=== PATIENT | male | born 1940 | race Caucasian/White ===

== ENCOUNTER 2017-11-24 05:26 | Day surgery (SDC) | payer OTHER ==
[~2017-11-24] VITALS: Ht 175.3 cm; Wt 90.9 kg
--- NOTE | ~2017-11-24 | O ---
[facility] [place] [address] OPERATIVE REPORT Name: WHITLEY BANDA Room #: DEP [facility].#: [id number] Admission: 11/24/17 Attend Phys: Louie Ling MD Discharge: 11/24/17 Date of : 44 Report #: [id number] THIS REPORT FOR: //name// CC: Nathan Ling DATE OF SERVICE: 11/24/2017 SURGEON: Louie Ling MD WINTERIZER: None. PREOPERATIVE DIAGNOSIS: Bilateral upper lid dermatochalasia with superior visual field defect. POSTOPERATIVE DIAGNOSIS: Bilateral upper lid dermatochalasia with superior visual field defect. OPERATION PERFORMED: Bilateral upper lid functional blepharoplasty. ANESTHESIA: Local with IV sedation. COMPLICATIONS: None. INDICATIONS FOR SURGERY: This patient has acquired upper lid dermatochalasia with superior visual field loss both eyes because of excessive upper lid tissues to include skin and fat. Visual field testing demonstrates dense superior visual defects. Retesting with the upper lid elevated shows an improvement in visual field loss of over 30% and in excess of 12 degrees. The current procedures are undertaken in order to improve the patient's visual function. Informed consent was obtained to include but not limited to the loss of vision, bleeding, infection, scarring, failure to improve the problem and need for further surgery. DESCRIPTION OF OPERATION: The patient was taken to the operating room, where 2% Xylocaine with epinephrine mixed with equal parts of 0.75% Marcaine with Wydase was administered transcutaneously to each upper lid. The patient was then prepped and draped in the usual sterile fashion and a skin-marking pen was then utilized to outline an upper lid crease that was symmetrical on each side. Graefe forceps were then used to quantitate the redundant upper lid skin and it was similarly outlined. The incisions were then made with Luis scissors and a skin-muscle flap removed from each side with high-temp cautery. Hemostasis was achieved with the monopolar cautery as it was throughout the case. The [address] [address] OPERATIVE REPORT Name: WHITLEY BANDA Room #: DEP [facility] M.R.#: [id number] Admission: 11/24/17 Attend Phys: Louie Ling MD Discharge: 11/24/17 Date of : 44 Report #: [id number] orbital septum was then identified and the central and medial fat pads were inspected. The redundant soft tissue was then sculpted with the monopolar cautery. The upper lid crease was then reformed with tightening of the pretarsal orbicularis muscle. The upper lid crease was then further reformed with multiple interrupted 6-0 chromic sutures. The skin was then closed with a running 6-0 plain gut suture. The wound was then cleaned and dressed with ophthalmic antibiotic ointment and a nonstick dressing. The patient was transported to the recovery area, where cold compresses were applied, having tolerated the procedure well with no anesthetic or operative complications being noted. <ELECTRONICALLY SIGNED> By: Louie Ling MD 12/05/17 [id number] Louie Ling MD /nt
[~2017-11-24 05:26] MED LIST: CYMBALTA30 MG PO; FINASTERIDE5 MG PO; FLOMAX0.4 MG PO; FLONASE 0.05%50 MCG NASAL; GABAPENTIN800 M1 PO; HYDROXYCHLOROQ200 M1 PO; LEFLUNOMIDE 1010 MG PO; LOSARTAN-HCTZ1 EAC2 PO; METAMUCIL0.4 GM PO; NORVASC5 MG PO; OMEPRAZOLE40 MG PO; OXYBUTYNIN 5 MG5 M2 PO; PREDNISONE 5 MG5 M1 PO; SIMPONI AR50 MG/4 ML IV; SIMVASTATIN40 MG PO; SINGULAIR 10 MG10 M1 PO; SULFASALAZINE500 M4 PO; SYMBICORT160 MCG/4. INH; TROSPIUM CHLORI60 MG PO; VITAMIN D5000 UNIT PO
[2017-11-24 09:21] VITALS: BP 133/75
== END 2017-11-24 08:30 | disposition home or self-care (01) ==
LOC: OR 05:26 → TBA 05:26 → OR 06:52
DX: H02.834 Dermatochalasis of left upper eyelid (principal); H02.831 Dermatochalasis of right upper eyelid; H53.40 Unspecified visual field defects; G47.30 Sleep apnea, unspecified; I10 Essential (primary) hypertension; E78.5 Hyperlipidemia, unspecified; K21.9 Gastro-esophageal reflux disease without esophagitis; M06.9 Rheumatoid arthritis, unspecified; G57.93 Unspecified mononeuropathy of bilateral lower limbs; Z88.8 Allergy status to other drugs, medicaments and biological substances; Z87.891 Personal history of nicotine dependence; Z87.442 Personal history of urinary calculi; Z85.828 Personal history of other malignant neoplasm of skin; Z98.890 Other specified postprocedural states; Z90.89 Acquired absence of other organs; Z98.42 Cataract extraction status, left eye; Z98.41 Cataract extraction status, right eye
CPT/HCPCS: 50010; 50101; 50386; 50398; 51636; 56531; 62110; 62850; 70005